=== PATIENT | female | born 1960 | race African-American/Black ===

== ENCOUNTER 2018-12-06 15:03 | Emergency (ER) | payer OTHER, SELFPAY ==
--- NOTE | 2018-12-06 17:24 | ER ---
Nurse's Notes [facility] Name: Steff Alonso Age: 58 yrs Sex: Female : 1960 Arrival Date: 12/06/2018 Time: 15:08 Bed Waiting Private MD: None, None Diagnosis: Presentation: 12/06 15:24 Presenting complaint: Patient states: Left upper forearm pain after patient fell while aj trying to push her car out of the mud. Reports falling with left arm outstretched. Care prior to arrival: None. Mechanism of Injury: Fall from standing position. Trauma event details: Injury occurred in the [facility], Injury occurred: at home. Injury occurred: December 06, 2018 Injury occurred at: 14:00. 15:24 Acuity: DUNIA 3 aj 15:24 Method Of Arrival: Wheelchair aj Trauma Activation: Not Applicable Physician: ED Physician; Name: ; Notified At: ; Arrived At: Physician: General Surgeon; Name: ; Notified At: ; Arrived At: Physician: Radiology; Name: ; Notified At: ; Arrived At: Physician: Respiratory; Name: ; Notified At: ; Arrived At: Physician: Lab; Name: ; Notified At: ; Arrived At: Historical: - Allergies: 15:29 No Known Allergies; aj - Home Meds: 15:29 Metoprolol Tartrate Oral [Active]; aj - PMHx: 15:29 Hypertension; Arthritis; aj - PSHx: 15:29 Hernia repair; Cholecystectomy; aj - Immunization history: Last tetanus immunization: unknown. - Social history:: Smoking status: Patient/guardian denies using tobacco. - Ebola Screening: : Patient negative for fever greater than or equal to 101.5 degrees Fahrenheit, and additional compatible Ebola Virus Disease symptoms Patient denies exposure to infectious person Patient denies travel to an Ebola-affected area in the 21 days before illness onset No symptoms or risks identified at this time. Primary Survey: 15:24 NO uncontrolled hemorrhage observed. Breathing/Chest: Respiratory pattern: regular, aj Respiratory effort: spontaneous, unlabored, Breath sounds: clear, Chest inspection: symmetrical rise and fall of the chest. Circulation: Skin color: pink, Skin temperature: warm, dry. Disability Alert. Assessment: 15:24 General: Appears in no apparent distress. comfortable, obese, Behavior is calm, aj cooperative. Pain: Complains of pain in left antecubital area and dorsal aspect of left forearm. Neuro: Level of Consciousness is awake, alert, obeys commands, Oriented to person, place, time, situation, Appropriate for age. Respiratory: Airway is patent Respiratory effort is even, unlabored, Respiratory pattern is regular, symmetrical. Derm: Skin is intact, is healthy with good turgor, Skin is pink, warm \T\ dry. normal. Musculoskeletal: Circulation, motion, and sensation intact. Reports pain in left antecubital area and dorsal aspect of left forearm. Vital Signs: 15:24 BP 176 / 92; Pulse 88; Resp 20; Temp 98.3; Pulse Ox 98% on R/A; Weight 197.77 kg; aj Height 6 ft. 0 in. (182.88 cm); 15:24 Body Mass Index 59.13 (197.77 kg, 182.88 cm) aj Stanley Coma Score: 15:24 Eye Response: spontaneous(4). Verbal Response: oriented(5). Motor Response: obeys aj commands(6). Total: 15. Trauma Score (Adult): 15:24 Eye Response: spontaneous(1); Verbal Response: oriented(1); Motor Response: obeys aj commands(2); Systolic BP: > 89 mm Hg(4); Respiratory Rate: 10 to 29 per min(4); Stanley Score: 15; Trauma Score: 12 ED Course: 15:08 Patient arrived in ED. mr 15:08 None, None is Private Physician. mr 15:26 Triage completed. aj 15:29 Arm band placed on right wrist. Patient placed in waiting room, Patient notified of wait time. X-ray ordered. 17:23 Jerry Castañeda MD is Attending Physician. aj Administered Medications: No medications were administered Outcome: 17:23 Eloped from waiting room, Patient's family stated that they were taking the patient to [facility] as they did not want to wait any longer 17:24 Patient left the ED. aj Signatures: Jenna Angeles, RN RN Majo Cantrell mr
== END 2018-12-06 17:24 | disposition left against medical advice (07) ==
LOC: ER 15:03
DX: Z53.21 Procedure and treatment not carried out due to patient leaving prior to being seen by health care provider (principal)
CPT/HCPCS: 99281

== ENCOUNTER 2023-08-21 13:06 | Emergency (ER) | payer OTHER ==
--- OUTSIDE RECORDS SUMMARY | 2023-08-21 13:09 | XMS REPORT | Continuity of Care Document ---
:1960 Author Organization [facility] [place] [facility] t Address [address] [place] [address] [address] [place] [address] Care Team Providers Name Role Phone Massimo Nick Beatrice Primary Care Physician Eduard Gray MD Attending Clinician EDUARD GRAY Attending Clinician Unavailable Doctor Unassigned, [place] Attending Clinician Unavailable QUOC Attending Clinician Unavailable Gabriella Tolentino Attending Clinician [phone] Uli Tellez DO Attending Clinician Yenni Robles Attending Clinician YENNI TAYLOR Attending Clinician Unavailable QUOC Admitting Clinician Unavailable Payers Payer Name Policy Type Policy Number Effective Date Expiration Date S [facility] INDIGENT PROGRAM [id number] Problems Condition Condition Condition Status Onset Resolution Last Treating Co mments Source Name Details Category Date Date Treatment Clinician Date History of History of Disease Active 2020-12 U nivers claustroph claustroph 0-13 it y of obia obia 00:00: [place] 00 Medical Branch Gout Gout Problem Active [place] 7-15 Communi 00:[facility]: [facility] Essential Essential Problem Active [facility] hypertensi Hypertensi 7-15 Co mmuni on on 00:00: ty 00 [facility]osp[facility] Clin[facility] Congestive Congestive Problem Active S [place] heart Heart 7-15 Communi failure Failure 00:00: ty 00 [facility]osp[facility] Clinics Rheumatoid Rheumatoid Problem Active S [place] arthritis Arthritis 7-15 Comm uni 00:00: ty 00 [facility]ospita Clinics Heel pain Heel Pain Problem Active [facility]ric 7-15 Communi 00:00: ty [facility] Left foot Left foot Disease Active 2015-12 Uni vers pain pain 1- ity of 00:00: [place] [facility] Morbid Morbid Disease Active Univers obesity obesity 3 ity of 00:00: [place] [facility] Asymptomat Asymptomat Disease Active U nivers ic ic 3 ity of varicose varicose 00:00: [place] veins veins 00 Medical Branch Essential Essential Disease Active Overview: Univers hypertensi hypertensi 03-01 Formattin ity of on on 00:00: g of this [place] note Medical might be Branch different from the original. ICD10 Diagnosis Term Extract Mixer Utility Urinary, Urinary, Disease Active Unive rs incontinen incontinen 3 it y of ce, stress ce, [place] female [place] Urinary Urinary Disease Active Univers frequency frequency 3 ity of 00:00: [place] 00 Medical Branch Encounter Encounter Disease Active Overview: Univers for for 3 Formattin ity of routine routine 00:00: g of this [place] gynecologi gynecologi 00 note Me dical kristy kristy might be Branch examinatio examinatio different n n from the original. ICD10 Diagnosis Term Extract Mixer Utility Allergies, Adverse Reactions, Alerts Allergy Allergy Status Severity Reaction(s) Onset Inactive Treating Comm ents Source Name Type Date Date Clinician NO KNOWN Drug Active Univers ALLERGIE Class ity of S [facility] Social History Social Habit Start Date Stop Date Quantity Comments Source Exposure to Not sure [facility] SARS-CoV-2 [place] Medical (event) Branch Alcohol intake 2021-08-29 2021-08-29 Current University of 00:00:00 00:00:00 non-drinker of [facility] alcohol Branch (finding) Sex Assigned At [birth year] Universit y of 00:00:00 00:00:00 [facility] Branch Smoking Status Start Date Stop Date Source Never smoker [facility] Medical Branch Medications Ordered Filled Start Stop Current Ordering Indication Dosage Frequency Signature Comments Components Source Medication Medication Date Date Medication? Clinician (SIG) Name Name oxazepam 2020-12- No [id number] 10mg 10 mg, U nivers (SERAX) 0-13 10-13 Oral, ity of capsule 10 17:30: 17:34 ONCE, 1 [place] mg 00 :00 dose, On Medical Wed Branch 09/13/21 at 1230, Routine methylPREDN Yes [id number] Take by Univers ISolone 4 9-28 mouth ity of mg tablets 00:00: [place]-INSTRU [place] 00 CTIONS. Medical follow Branch package directions methylPREDN Yes [id number] Take by Univers ISolone 4 9-28 mouth ity of mg tablets 00:00: [place]-INSTRU [place] 00 CTIONS. Medical follow Branch package directions gabapentin 2020- No [id number] 600mg Take 1 Univers 600 mg 9-28 10-29 tablet by ity of tablet 00:00: 04:59 mouth 3 [place] 00 :00 (three) Medical times Branch daily for 30 days. gabapentin 2020- No [id number] 600mg Take 1 Univers 600 mg 9-28 10-29 tablet by ity of tablet 00:00: 04:59 mouth 3 [place] 00 :00 (three) Medical times Branch daily for 30 days. methocarbam 2020- No [id number] 500mg Take 1 Univers oL 500 mg 9-28 10-20 tablet by ity of tablet 00:00: 04:59 mouth 4 [place] 00 :00 (four) Medical times Branch daily for 21 days. naproxen 2020- No [id number] 500mg Take 1 Univers 500 mg 9-28 10-20 tablet by ity of tablet 00:00: 04:59 mouth 2 [place] 00 :00 (two) Medical times Branch daily with meals for 21 days. methocarbam 2020- No [id number] 500mg Take 1 Univers oL 500 mg 9-28 10-20 tablet by ity of tablet 00:00: 04:59 mouth 4 [place] 00 :00 (four) Medical times Branch daily for 21 days. naproxen 0 2020- No [id number] 500mg Take 1 Univers 500 mg 9-28 10-20 tablet by ity of tablet 00:00: 04:59 mouth 2 [place] 00 :00 (two) Medical times Branch daily with meals for 21 days. oxybutynin Yes [id number] 5mg Take 1 U nivers XL 5 mg 24 8-19 tablet by ity of hr tablet 00:00: mouth [place] 00 daily. Medical Branch conjugated Yes [id number] 1g Insert 1 g Univers estrogens 8-19 into ity of 0.625 00:00: vagina [place] mg/gram 00 SEE-INSTRU Medica l vaginal CTIONS. Branch cream Place small amount of cream to vaginal open two times a week oxybutynin Yes [id number] 5mg Take 1 U nivers XL 5 mg 24 8-19 tablet by ity of hr tablet 00:00: mouth [place] 00 daily. Medical Branch conjugated Yes [id number] 1g Insert 1 g Univers estrogens 8-19 into ity of 0.625 00:00: vagina [place] mg/gram 00 SEE-INSTRU Medica l vaginal CTIONS. Branch cream Place small amount of cream to vaginal open two times a week methylPREDN 2017-12 Yes Take by Uni vers ISolone 4 0-18 mouth ity of mg tablets 00:00: SEE-INSTRU [place] 00 CTIONS. Medical follow Branch package directions meloxicam 2017-12 Yes 15mg Take 1 Univer s (MOBIC) 15 0-18 tablet by ity of mg tablet 00:00: mouth [place] 00 daily. Medical Branch methylPREDN 2017-12 Yes Take by Uni vers ISolone 4 0-18 mouth ity of mg tablets 00:00: SEE-INSTRU [place] 00 CTIONS. Medical follow Branch package directions meloxicam 2017-12 Yes 15mg Take 1 Univer s (MOBIC) 15 0-18 tablet by ity of mg tablet 00:00: mouth [place] 00 daily. Medical Branch Glucosamine Glucosamine No Glucosamin [place] e Communi [facility] potassium potassium No potassium [place] 99 mg 1 tb 99 mg 1 tb 99 mg 1 tb Communi daily daily daily [facility] Vitamin C Vitamin C No Vitamin C [place] 1000 mg 1000 mg 1000 mg Commun i [facility] zinc 50 mg zinc 50 mg No zinc 50 mg [place] tablet Take tablet Take tablet Communi by oral by oral Take by ty route. route. oral Hospita route. l Clinics apple cider apple cider No apple [place] vinegar vinegar cider Communi vinegar [facility] Elderberry Elderberry No Elderberry [place] Communi [facility] felodipine felodipine No 1 Q1D felodipine [place] ER 5 mg ER 5 mg ER 5 mg Commun i tablet,exte tablet,exte tablet,ext ty nded nded ended Hospita release 24 release 24 release 24 l hr Take 1 hr Take 1 hr Take 1 Clinics tablet tablet tablet every day every day every day by oral by oral by oral route in route in route in the morning the morning the for 30 for 30 morning days. days. for 30 days. Glucosamine Glucosamine No Glucosamin [place] e Communi [facility] potassium potassium No potassium [place] 99 mg 1 tb 99 mg 1 tb 99 mg 1 tb Communi daily daily daily [facility] Vitamin C Vitamin C No Vitamin C [place] 1000 mg 1000 mg 1000 mg Commun i [facility] zinc 50 mg zinc 50 mg No zinc 50 mg [place] tablet Take tablet Take tablet Communi by oral by oral Take by ty route. route. oral Hospita route. l [facility] apple cider apple cider No apple [place] vinegar vinegar cider Communi vinegar [facility] Elderberry Elderberry No Elderberry [place] Communi [facility] felodipine felodipine No 1 Q1D felodipine [place] ER 5 mg ER 5 mg ER 5 mg Commun i tablet,exte tablet,exte tablet,ext ty nded nded ended Hospita release 24 release 24 release 24 l hr Take 1 hr Take 1 hr Take 1 Clinics tablet tablet tablet every day every day every day by oral by oral by oral route in route in route in the morning the morning the for 30 for 30 morning days. days. for 30 days. Glucosamine Glucosamine No Glucosamin [place] e Communi [facility] potassium potassium No potassium [place] 99 mg 1 tb 99 mg 1 tb 99 mg 1 tb Communi daily daily daily [facility] Vitamin C Vitamin C No Vitamin C [place] 1000 mg 1000 mg 1000 mg Commun i [facility] zinc 50 mg zinc 50 mg No zinc 50 mg [place] tablet Take tablet Take tablet Communi by oral by oral Take by ty route. route. oral Hospita route. l Clinics apple cider apple cider No apple [place] vinegar vinegar cider Communi vinegar [facility] cholecalcif cholecalcif No 1capsul Q1W cholecalci [place] eric eric e(s) ferol Communi (vitamin (vitamin (vitamin ty D3) 1,250 D3) 1,250 D3) 1,250 Hospita mcg (50,000 mcg (50,000 mcg l unit) unit) (50,000 Clinics capsule capsule unit) Take 1 Take 1 capsule capsule capsule Take 1 every week every week capsule by oral by oral every week route as route as by oral directed directed route as for 90 for 90 directed days. days. for 90 days. Elderberry Elderberry No Elderberry [place] Communi [facility] felodipine felodipine No 1 BID felodipine [place] ER 5 mg ER 5 mg ER 5 mg Commun i tablet,exte tablet,exte tablet,ext ty nded nded ended Hospita release 24 release 24 release 24 l hr Take 1 hr Take 1 hr Take 1 Clinics tablet tablet tablet twice a day twice a day twice a by oral by oral day by route as route as oral route directed directed as for 30 for 30 directed days. days. for 30 days. Vital Signs Vital Name Observation Time Observation Value Comments Source Systolic blood 2021-09-13 17:32:00 168 mm[Hg] [facility] Diastolic blood 2021-09-13 17:32:00 98 mm[Hg] [facility] Heart rate 2021-09-13 17:32:00 79 /min [facility] Respiratory rate 2021-09-13 17:32:00 20 /min [facility] Body height 2021-09-13 17:32:00 182.9 cm [facility] Body weight 2021-09-13 17:32:00 193.5 kg [facility] BMI 2021-09-13 17:32:00 57.86 kg/m2 [facility] Oxygen saturation in 2021-09-13 17:32:00 96 /min University Arterial blood by [facility] Pulse oximetry Branch Body temperature 2021-08-29 20:27:00 [facility].83 [facility] height 2021-08-29 20:27:00 182.9 cm [facility] Body weight 2021-08-29 20:27:00 193.504 kg [facility] BMI 2021-08-29 20:27:00 57.86 kg/m2 [facility] BP Diastolic 2021-06-29 00:00:00 85 mm[Hg] [facility] Height 2021-06-29 00:00:00 72 [in_i] [facility] s BMI (Body Mass 2021-06-29 00:00:00 58 kg/m2 [facility] Clinic s BP Systolic 2021-06-29 00:00:00 168 mm[Hg] [facility] s Body Weight 2021-06-29 00:00:00 6844.8 [oz_av] [facility] s BP Diastolic 2021-06-15 00:00:00 96 mm[Hg] [facility] Height 2021-06-15 00:00:00 72 [in_i] [facility] s BMI (Body Mass 2021-06-15 00:00:00 57.4 kg/m2 [facility]) [facility] s BP Systolic 2021-06-15 00:00:00 196 mm[Hg] [facility] s Body Weight 2021-06-15 00:00:00 6777.6 [oz_av] [facility] s Procedures Procedure Date / Time Performing Clinician Source Performed MR LUMBAR SPINE WO 2021-09-13 18:31:45 Bogdan Huerta y of [facility] electrocardiogram, routine 2021-06-15 00:00:00 [facility] ECG, 12 leads min Hospital Clini cs XR, foot, 3 or more view 2021-06-15 00:00:00 [facility] MAMMO, screening, digital, 2021-06-15 00:00:00 [facility] bilateral [facility] bone density 2021-06-15 00:00:00 [facility] XR, hip + pelvis, 2021-06-15 00:00:00 [facility] munity [facility] XR, lumbosacral spine, 4 2021-06-15 00:00:00 [facility] or more view [facility] Tubal Ligation [facility] Cholecystectomy [facility] Plan of Care Planned Activity Planned Date Details Comments Source Diagnostic Test 2021-06-29 vitamin D, [facility] Pending 00:00:00 25-hydroxy, total, [facility] serum [code = vitamin D, 25-hydroxy, total, serum] Future Scheduled Test Blood pressure [facility] 130/80 [code = Hospital Clin ics Blood pressure 130/80] Instructions [facility] Clinic s Encounters Start End Encounter Admission Attending Care Care Encounter Source Date/Time Date/Time Type Type Clinicians Facility Department ID 2021-09-13 2021-09-13 [facility] [id number] Univers 12:00:56 23:59:00 Encounter Eduard SPECIALTY [id number] [facility] [id number] [facility] [place] AT [phone] Oh parth [facility] 804 Branch [place] 2021-09-13 2021-09-13 [facility] [id number] Univers 00:00:00 00:00:00 EDUARD ruiz [facility] 2021-08-29 2021-08-29 [facility] [id number] Univers 15:30:00 23:59:00 Encounter Eduard SPECIALTY [id number] [facility] [id number] [place] [id number] Oh parth SEGURA 809 [facility] 2021-08-29 2021-08-29 [facility] [id number] Univers 14:46:20 16:17:01 Visit Eduard ERIK [id number] ity of [facility] [id number] [place] [phone] Oh hansamary SEGURA 198 [facility] 2021-08-29 2021-08-29 [facility]patient [facility] [id number] Univers 14:50:00 14:50:00 EDUARD kimberliraúl [facility] 2021-08-15 2021-08-15 [facility] [id number] Univers 13:10:00 13:10:00 EDUARD kimberliraúl [facility] 2021-08-01 2021-08-01 Orders Doctor QUINN [id number] Univers 00:00:00 00:00:00 Only Unassigned, MICHAEL [id number] ity of [place] [facility] [id number] [place] [phone] [address] 2021-07-18 2021-07-18 Orders Doctor QUINN [id number] Univers 00:00:00 00:00:00 Only Unassigned, MICHAEL [id number] ity of [place] [facility] [id number] [place] as [id number] [address] 2021-06-29 2021-06-29 Outpatient [facility] [id number] [place] 09:46:00 09:46:00 _L 0729 Commun i ty Hospita l Clinics 2021-06-29 2021-06-29 Outpatient [facility] [id number] 00:00:00 00:00:00 , Gabriella [id number] Laura [id number] 2021-06-29 2021-06-29 Gabriella Sanchez [facility] [place] [facility] [place] 202 [id number] [place] 00:00:00 00:00:00 [facility] ARIEL rojas-C: Hospital - ty [address] [facility] [address], [place] [address] , Ph. 2021-06-29 2021-06-29 Orders Doctor BALL [id number] Univers 00:00:00 00:00:00 Only Unassigned, MICHAEL [id number] ity of [place] [facility] [id number] [place] [id number] [place] [address] Branch 2021-06-15 2021-06-15 Outpatient [facility] 107 [place] 05:12:00 05:12:00 _L 0715 Commun i ty Hospita [facility] 2021-06-15 2021-06-15 Gabriella Sanchez [facility] [place] [facility] [place] 15 [place] 00:00:00 00:00:00 [facility] ARIEL rojas-C: Hospital - ty [address] [facility] [address], [place] [address] , Ph. 2021-06-15 2021-06-15 Outpatient [facility] [id number] 00:00:00 00:00:00 , Gabriella [id number] Laura [id number] 2021-06-15 2021-06-15 Outpatient [facility] [id number] 00:00:00 00:00:00 , Gabriella [id number] Laura [id number] 2021-06-14 Outpatient [facility] [place] 05:33:00 05:33:00 _L 0714 Commun i ty Hospita [facility] 2021-02-07 2021-02-07 Patient JONNY Tellez [id number] Univers 00:00:00 00:00:00 Outreach Uli PRIMARY [id number] i ty of [facility] [id number] [id number] Oh dicco [address] [place] 2020-08-24 2020-08-24 Office [facility] [id number] Univers 08:58:16 09:26:35 Visit Yenni Beatrice Lucie [id number] ity of [id number] [place] Profess[place] [phone] Oh dical nal 204 [facility] 2020-08-24 2020-08-24 Outpatient R [facility] [id number] Univers 09:00:00 09:00:00 YENNI ruiz [facility] 2020-07-21 2020-07-21 Telephone [facility] [id number] Univers 00:00:00 00:00:00 Yenni Faulkner [id number] ity [id number] [phone] Oh dical [facility] 204 [facility] 2020-07-20 2020-07-20 Office [facility] [id number] Univers 08:00:49 08:59:40 Visit Yennitony Faulkner [id number] ity [place] [id number] [id number] Oh dical nal 204 [facility] 2020-07-20 2020-07-20 [facility] [id number] Univers 08:00:00 08:00:00 YENNI ruiz [facility] 2020-07-20 2020-07-20 Orders Doctor QUINN [id number] Univers 00:00:00 00:00:00 Only Unassigned, MICHAEL [id number] ity of [place] [facility] [id number] [place] [phone] [place] [address] Branch Results This patient has no known results.
--- NOTE | 2023-08-21 14:38 | RAD REPORT ---
EXAM DESCRIPTION: US - Extremity Venous [facility] - 08/21/2023 1:57 pm CLINICAL HISTORY: Pain, swelling COMPARISON: None. TECHNIQUE: Real-time sonographic evaluation of the right lower extremity deep venous system was perf ormed. FINDINGS: Normal compressibility, flow augmentation, phasic flow and spontaneous flow is identified in the right lower extremity deep venous system. No intraluminal filling defects seen. Moderate subcutaneous edema underlies the marked area of pain. A focus of hypo dermal calcification w ith shadowing is indeterminate, appears to be chronic, could relate to a small phlebolith. 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 IMPRESSION: No DVT in the right lower extremity. Moderate subcutaneous edema in the marked area of pain. Probable small hypo dermal phlebolith. 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
--- NOTE | 2023-08-21 15:29 | EDPHYS ---
Physician Documentation [facility] Name: Steff Alonso Age: 62 yrs Sex: Female : 1960 Arrival Date: 08/21/2023 Time: 13:06 Bed 11 Private MD: ED Physician Rafael Escobar HPI: 08/21 17:17 This 62 yrs old Black Female presents to ER via Ambulatory with complaints of Leg Pain. rt 17:17 Patient presents to the ED with 2 weeks of a right knee pain that is radiating rt distally. She is reporting mild swelling to that area. He states this occurred after mowing the lawn,, she denies any overt leg trauma. Denies other acute complaints at this time, symptoms are mild in severity, aching in nature, no other aggravating or elevating factors.. Historical: - Allergies: 13:31 No Known Allergies; ph - PMHx: 13:31 Arthritis; Hypertension; ph - Immunization history:: Adult Immunizations unknown. - Social history:: Smoking status: Patient denies any tobacco usage or history of. - Family history:: not pertinent. ROS: 17:17 Constitutional: Negative for fever, chills, and weight loss, Cardiovascular: Negative rt for chest pain, palpitations, and edema, Respiratory: Negative for shortness of breath, cough, wheezing, and pleuritic chest pain, Abdomen/GI: Negative for abdominal pain, nausea, vomiting, diarrhea, and constipation, Skin: Negative for injury, rash, and discoloration, Neuro: Negative for headache, weakness, numbness, tingling, and seizure, Psych: Negative for depression, anxiety, suicide ideation, homicidal ideation, and hallucinations, 17:17 MS/extremity: Positive for pain, swelling, Exam: 17:17 Constitutional: This is a well developed, well nourished patient who is awake, alert, rt and in no acute distress. Head/Face: Normocephalic, atraumatic. Chest/axilla: Normal chest wall appearance and motion. Nontender with no deformity. No lesions are appreciated. Cardiovascular: Regular rate and rhythm with a normal S1 and S2. No gallops, murmurs, or rubs. Normal PMI, no JVD. No pulse deficits. Respiratory: Lungs have equal breath sounds bilaterally, clear to auscultation and percussion. No rales, rhonchi or wheezes noted. No increased work of breathing, no retractions or nasal flaring. Abdomen/GI: Soft, non-tender, with normal bowel sounds. No distension or tympany. No guarding or rebound. No evidence of tenderness throughout. 17:17 Musculoskeletal/extremity: Minimal swelling noted to the right lower extremity, no focal areas of tenderness, deformities, no skin changes. Vital Signs: 13:30 BP 178 / 88; Pulse 71; Resp 18; Temp 98.1; Pulse Ox 99% on R/A; ph 15:34 BP 171 / 81; Pulse 71; Resp 18; Pulse Ox 99% on R/A; ll1 MDM: 13:32 Patient medically screened. rt 17:17 Differential diagnosis: DVT, arthritis, tendinitis, Gotti's cyst. Data reviewed: vital rt signs, nurses notes, radiologic studies. Test considered but Not performed: X-ray: No overt trauma, low suspicion for fracture, x-rays not indicated. Care significantly affected by the following chronic conditions: Hypertension. Counseling: I had a detailed discussion with the patient and/or guardian regarding the historical points, exam findings, and any diagnostic results supporting the discharge/admit diagnosis, radiology results, the need for outpatient follow up. 08/21 13:33 Order name: Extremity Venous [employer] US; Complete Time: 14:53 rt Administered Medications: No medications were administered Disposition Summary: 08/21/23 15:29 Discharge Ordered Notes: Location: Home rt Problem: an ongoing problem rt Symptoms: are unchanged rt Condition: Stable rt Diagnosis - Synovial cyst of popliteal space [Gotti], right knee rt Followup: rt - With: Private Physician - When: 2 - 3 days - Reason: Discharge Instructions: - Discharge Summary Sheet rt - Gotti Cyst rt Forms: - Medication Reconciliation Form rt - Thank You Letter rt - Antibiotic Education rt - Prescription Opioid Use rt - Patient Portal Instructions rt - Leadership Thank You Letter rt Signatures: Dispatcher [employer] Nessa Ellsworth RN RN Rafael Izaguirre MD MD rt
--- NOTE | 2023-08-21 15:29 | ER ---
Nurse's Notes [facility] Name: Steff Alonso Age: 62 yrs Sex: Female : 1960 Arrival Date: 08/21/2023 Time: 13:06 Bed 11 Private MD: Diagnosis: Synovial cyst of popliteal space [Gotti], right knee Presentation: 08/21 13:30 Chief complaint: Patient states: R lower leg and R foot pain that started 2 weeks ago ph after mowing yard. Coronavirus screen: Vaccine status: Patient reports receiving the 2nd dose of the covid vaccine. Ebola Screen: No symptoms or risks identified at this time. Initial Sepsis Screen: Does the patient meet any 2 criteria? No. Patient's initial sepsis screen is negative. Does the patient have a suspected source of infection? No. Patient's initial sepsis screen is negative. Risk Assessment: Do you want to hurt yourself or someone else? Patient reports no desire to harm self or others. Onset of symptoms was August 21, 2023. 13:30 Method Of Arrival: Ambulatory ph 13:30 Acuity: DUNIA 4 ph Triage Assessment: 13:31 General: Appears in no apparent distress. Behavior is calm, cooperative, appropriate ph for age. Pain: Complains of pain in right garcia, anterior aspect of right ankle and dorsum of right foot. Neuro: Level of Consciousness is awake, alert, obeys commands, Oriented to person, place, time, situation. Historical: - Allergies: 13:31 No Known Allergies; ph - PMHx: 13:31 Arthritis; Hypertension; ph - Immunization history:: Adult Immunizations unknown. - Social history:: Smoking status: Patient denies any tobacco usage or history of. - Family history:: not pertinent. Screenin:24 [facility] ED Fall Risk Assessment (Adult) Score/Fall Risk Level 0 - 2 = Low Risk ll1 Oriented to surroundings, Maintained a safe environment, Educated pt \T\ family on fall prevention, incl call for assistance when getting out of bed, Hourly rounding (assess needs \T\ fall precautionary measures) done. Abuse screen: Denies threats or abuse. Nutritional screening: No deficits noted. Tuberculosis screening: No symptoms or risk factors identified. Assessment: 15:24 Reassessment: No changes from previously documented assessment. Patient and/or family ll1 updated on plan of care and expected duration. Pain level reassessed. Patient is alert, oriented x 3, equal unlabored respirations, skin warm/dry/pink. Vital Signs: 13:30 BP 178 / 88; Pulse 71; Resp 18; Temp 98.1; Pulse Ox 99% on R/A; ph 15:34 BP 171 / 81; Pulse 71; Resp 18; Pulse Ox 99% on R/A; ll1 ED Course: 13:14 Patient arrived in ED. mg5 13:31 Triage completed. ph 13:32 Rafael Escobar MD is Attending Physician. rt 13:59 Extremity Venous [employer] US In Process Unspecified. EDMS 15:24 Arm band placed on Patient placed in an exam room, on a stretcher. ll1 15:24 Patient has correct armband on for positive identification. Bed in low position. Call ll1 light in reach. Provided Education on: n/a. 15:33 No provider procedures requiring assistance completed. Patient did not have IV access ll1 during this emergency room visit. Administered Medications: No medications were administered Medication: 15:24 VIS not applicable for this client. ll1 Outcome: 15:29 Discharge ordered by . rt 15:33 Discharged to home ambulatory, ll1 15:33 Condition: stable 15:33 Discharge instructions given to patient, Instructed on discharge instructions, follow up and referral plans. medication usage, Demonstrated understanding of instructions, follow-up care, 15:34 Patient left the ED. ll1 Signatures: Dispatcher [employer] [facility] Nessa Heller RN RN ph Maykel West RN RN ll Rafael Escobar MD MD rt Ismael Nano mg5 Corrections: (The following items were deleted from the chart) 15:24 13:31 Arm band placed on Patient placed in an exam room, ph ll1
[2023-08-21 15:44] VITALS: TEMP 98.1; O2SAT 99
[2023-08-21 15:46] VITALS: BP 171/81
== END 2023-08-21 15:34 | disposition home or self-care (01) ==
LOC: ER 13:06
DX: M71.21 Synovial cyst of popliteal space [Baker], right knee (principal)
CPT/HCPCS: 93971